=== PATIENT | female | born 1960 | race Caucasian/White ===

== ENCOUNTER 2017-08-23 07:04 | Day surgery (SDC) | payer MEDICARE ==
[~2017-08-23] VITALS: Ht 157.5 cm; Wt 88.1 kg
[~2017-08-23 07:04] MED LIST: AZAT50 PO; Amlodipine Besy10 MG PO; CYCL10 PO; Carvedilol12.5 MG PO; Cimetidine300 MG; Glucophage1000 MG PO; HYDCHL12.5 PO; NAPR550 PO; OMEPRAZOLE MAGN20 MG PO; PRAV20 PO; Percocet 5-3251 EACH PO
[2017-08-23] MEDS ORDERED: FURO20 (07:32)
[2017-08-23] MEDS ORDERED: Carvedilol12.5 MG (07:33)
[2017-08-23] MEDS ORDERED: METF500 (07:34)
[2017-08-23] MEDS ORDERED: AZAT50 (07:35)
== END 2017-08-23 08:59 | disposition home or self-care (01) ==
LOC: ORSCSDS 07:04
PROVIDERS: Ophthalmology
PROC: 08RK3JZ Replacement of Left Lens with Synthetic Substitute, Percutaneous Approach (ICD-10-PCS; principal; 2017-08-23 08:30)
DX: H25.12 Age-related nuclear cataract, left eye (principal); I10 Essential (primary) hypertension; F17.210 Nicotine dependence, cigarettes, uncomplicated; E11.9 Type 2 diabetes mellitus without complications; E66.01 Morbid (severe) obesity due to excess calories; Z68.35 Body mass index [BMI] 35.0-35.9, adult; Z79.899 Other long term (current) drug therapy
CPT/HCPCS: 82947; J2250; J3010; J3301; J7040; V2632

== ENCOUNTER → 2018-08-24 | Outpatient (CLI) | payer MEDICARE ==
[~2018-08-24] MED LIST changes: +AZAT50; +Carvedilol12.5 MG; +FURO20; +METF500
[2018-08-28 15:07] LABS: HPV 16 Negative (Negative); HPV 18 Negative (Negative); HPV OTHER HR TYPES Negative (Negative)
== END | disposition home or self-care (01) ==
LOC: LAB 16:42 → LAB SHORT 16:42
PROVIDERS: Obstetrics & Gynecology
DX: Z01.419 Encounter for gynecological examination (general) (routine) without abnormal findings (principal)
CPT/HCPCS: 87624; G0123

== ENCOUNTER 2021-05-12 08:09 | Day surgery (SDC) | payer MEDICARE ==
[~2021-05-12] VITALS: Ht 157.5 cm; Wt 96.2 kg
[~2021-05-12 08:09] MED LIST changes: +FURO20 PO; +METF500 PO
[2021-05-12] MEDS ORDERED: JARDIANCE10 MG PO (08:46)
[2021-05-12] MEDS ORDERED: Amaryl2 MG PO (08:47)
[2021-05-12] MEDS ORDERED: BASAGLAR K100 UNIT/1 SC (08:47)
--- NOTE | 2021-05-12 09:20 | NUR ---
05/12/21 0920 Yadi Caldwell DROP OF TETRACAIN INTO OP EYE AT 0834, PLENAEEMET IN AT 0836
== END 2021-05-12 10:15 | disposition home or self-care (01) ==
LOC: ORSCSDS 08:09
PROVIDERS: Ophthalmology
PROC: 08RJ3JZ Replacement of Right Lens with Synthetic Substitute, Percutaneous Approach (ICD-10-PCS; principal; 2021-05-12 09:30)
DX: H25.11 Age-related nuclear cataract, right eye (principal); E66.9 Obesity, unspecified; Z68.39 Body mass index [BMI] 39.0-39.9, adult; G47.33 Obstructive sleep apnea (adult) (pediatric); I10 Essential (primary) hypertension; E11.9 Type 2 diabetes mellitus without complications; Z79.4 Long term (current) use of insulin; Z79.82 Long term (current) use of aspirin; Z79.899 Other long term (current) drug therapy
CPT/HCPCS: 82947; J2001; J2250; J3010; J3301; J7040; V2632

== ENCOUNTER → 2023-04-13 | Outpatient (CLI) | payer MEDICARE ==
[~2023-04-13] MED LIST changes: +ALBU90OI INH; +ATEN25 PO; +Amaryl2 MG PO; +BASAGLAR K100 UNIT/1 SC; +JARDIANCE10 MG PO; +Voltaren100 GM TOP
[2023-04-13 19:11] LABS: BASOPHILS ABSOLUTE AUTO 0.02 K/mm3 (0.00-0.23); BASOPHILS PERCENT AUTO 0 % (0-2); EOSINOPHILS ABSOLUTE AUTO 0.05 K/mm3 (0.00-0.68); EOSINOPHILS PERCENT AUTO 1 % (0-6); Hematocrit 45.1 % (33.0-51.0); Hemoglobin 14.6 g/dL (11.5-16.0); IMMATURE GRAN ABSOLUTE AUTO 0.01 K/mm3 (0.00-0.10); IMMATURE GRAN PERCENT AUTO 0 % (0-1); LYMPHOCYTES PERCENT AUTO 17 % (21-46); MONOCYTES ABSOLUTE AUTO 0.37 K/mm3 (0.16-1.47); MONOCYTES PERCENT AUTO 8 % (4-13); Mean Corpuscular HGB 27.7 pg (26.0-34.0); Mean Corpuscular HGB Conc 32.4 g/dL (31.5-36.5); Mean Corpuscular Volume 85 fL (80-100); NEUTROPHILS ABSOLUTE AUTO 3.41 K/mm3 (1.96-9.15); NEUTROPHILS PERCENT AUTO 73 % (41-73); RDW Coefficient Variation 15.1 % (11.7-14.2); RDW Standard Deviation 46.4 fL (35.1-46.3); Red Blood Cell Count 5.28 M/mm3 (3.80-5.20); White Blood Cell Count 4.66 K/mm3 (4.00-11.30)
[2023-04-13 19:12] LABS: Mean Platelet Volume 11.8 fL (9.1-12.4); Platelet Count 95 K/mm3 (150-400)
[2023-04-13 19:28] LABS: Albumin, Blood 3.4 g/dL (3.4-5.0); Albumin/Globulin Ratio 0.7 (0.8-1.8); Bilirubin, Total 1.5 mg/dL (0.1-1.0); Calcium, Blood 9.5 mg/dL (8.5-10.1); Creatinine, Blood 0.63 mg/dL (0.40-1.00); Globulin, Blood 4.7 g/dL (2.2-4.0); Potassium, Blood 3.9 mmol/L (3.5-5.5); Total Protein, Blood 8.1 g/dL (6.4-8.2)
== END | disposition home or self-care (01) ==
LOC: LAB EV 19:00 → LAB SHORT 19:00
PROVIDERS: Physician Assistant Surgical
DX: M35.4 Diffuse (eosinophilic) fasciitis (principal)
CPT/HCPCS: 80053; 85025

== ENCOUNTER → 2024-09-20 | Outpatient (CLI) | payer MEDICARE ==
[2024-09-20 17:15] LABS: BASOPHILS ABSOLUTE AUTO 0.02 K/mm3 (0.00-0.23); BASOPHILS PERCENT AUTO 1 % (0-2); EOSINOPHILS ABSOLUTE AUTO 0.25 K/mm3 (0.00-0.68); EOSINOPHILS PERCENT AUTO 13 % (0-6); Hemoglobin 12.6 g/dL (11.5-16.0); IMMATURE GRAN ABSOLUTE AUTO 0.01 K/mm3 (0.00-0.10); IMMATURE GRAN PERCENT AUTO 1 % (0-1); LYMPHOCYTES ABSOLUTE AUTO 0.41 K/mm3 (0.84-5.20); LYMPHOCYTES PERCENT AUTO 21 % (21-46); MONOCYTES ABSOLUTE AUTO 0.17 K/mm3 (0.16-1.47); MONOCYTES PERCENT AUTO 9 % (4-13); Mean Corpuscular HGB 27.1 pg (26.0-34.0); Mean Corpuscular HGB Conc 31.5 g/dL (31.5-36.5); Mean Corpuscular Volume 86 fL (80-100); NEUTROPHILS ABSOLUTE AUTO 1.14 K/mm3 (1.96-9.15); NEUTROPHILS PERCENT AUTO 57 % (41-73); RDW Coefficient Variation 14.7 % (11.7-14.2); RDW Standard Deviation 46.8 fL (35.1-46.3); Red Blood Cell Count 4.65 M/mm3 (3.80-5.20)
[2024-09-20 17:44] LABS: Mean Platelet Volume 9.7 fL (9.1-12.4); Platelet Count 77 K/mm3 (150-400)
== END | disposition home or self-care (01) ==
LOC: LAB 17:12 → LAB SHORT 17:12
PROVIDERS: Physician Assistant
DX: M35.4 Diffuse (eosinophilic) fasciitis (principal); D72.18 Eosinophilia in diseases classified elsewhere
CPT/HCPCS: 85025; 85651